=== PATIENT | female | born 1990 | race Caucasian/White ===

== ENCOUNTER 2016-09-12 16:10 | Observation (INO) | payer BC ==
[~2016-09-12] VITALS: Ht 172.7 cm; Wt 61.7 kg
[2016-09-12] VITALS (8 sets, daily range): BP systolic 95–166; BP diastolic 46–99; PULSE 64–100; RESP 16–26; TEMP 98.1; O2SAT 98–100
[~2016-09-12 16:10] MED LIST: NEOSTIGMINE 3 MG/3 ML SYR IV ONE; NORMOSOL R INJ 1,000 ML IV ONE; ONDANSETRON HCL 4 MG/2 ML VIAL IV PUSH ONE; PROPOFOL 200 MG/20 ML AMP IV ONE
[2016-09-12 16:59] LABS: BLOOD, URINE NEG (NEG); GLUCOSE,URINE NEG (NEG); KETONE, URINE 15 mg/dL (NEG); NITRITE,URINE NEG (NEG)
[2016-09-12 17:15] LABS: BACTERIA, URINE OCC /hpf; COMMENT2 (UR) CULT NOT INDICATED; RBC, URINE 0-3 /hpf (0-3); SQUAMOUS EPITHELIAL CELL URINE > 8 /hpf (0-5); URINE COLOR YELLOW (YELLW/STRAW); WBC, URINE 0-2 /hpf (0-5)
[2016-09-12 18:28] LABS: COMMENT (UR) CULT NOT INDICATED; CULTURE IF INDICATED CULT NOT INDICATED
[2016-09-12] MEDS ORDERED: SODIUM CHLOR 0.9% 1000 ML INJ 1,000 ML IV ONE (18:45)
[2016-09-12] MEDS ORDERED: SODIUM CHLORIDE 0.9% FLUSH 5 ML FLUSH IVF PRN (18:45)
[2016-09-12] MEDS ORDERED: diphenhydrAMINE HCL 50 MG/ML VIAL IV PUSH ONE (18:45)
[2016-09-12] MEDS ORDERED: ACETAMINOPHEN 500 MG CPLT PO ONE (18:45)
[2016-09-12 19:01] LABS: CHLORIDE 102 MEQ/L (98-107); SODIUM (NA) 137 MEQ/L (136-145)
[2016-09-12 19:05] LABS: ANION GAP 8 MEQ/L (5-15); BICARBONATE 26.6 MEQ/L (21.0-32.0); BLOOD UREA NITROGEN 18 MG/DL (7-18)
[2016-09-12 19:08] LABS: ALT (GPT) 16 U/L (10-53); AST (GOT) 11 U/L (15-37); GLOMERULAR FILTRATION RATE 78 ML/MIN (>89)
[2016-09-12 19:09] LABS: TOTAL BILIRUBIN ADULT 0.6 MG/DL (0.2-1.0)
[2016-09-12 19:11] LABS: ALKALINE PHOSPHATASE 64 U/L (45-117)
[2016-09-12 19:13] LABS: BETA HCG QUANT 595 MIU/ML (0-5)
--- NOTE | 2016-09-12 20:49 | RADHPO ---
EXAM DATE/TIME: 09/12/2016 19:46 [place] COMPARISON: No previous studies available for comparison. INDICATIONS : Ectopic. LAB(S): Beta-hC MEDICAL HISTORY : . Irritable bowel syndrome. Asthma. Anxiety. SURGICAL HISTORY : None. ENCOUNTER: Initial ACUITY: 1 day PAIN SCORE: 8/10 LOCATION: Bilateral pelvis MEASUREMENTS: UTERUS: 6.5 x 5.3 x 3.8 cm ENDOMETRIAL STRIPE: 9 mm RIGHT OVARY: 5.1 x 4.6 x 4.6 cm LEFT OVARY: 3.8 x 3.5 x 2.3 cm FINDINGS: UTERUS: The myometrium has homogeneous echotexture without mass. A gestational sac is not seen in the endome trial cavity. There are small cysts at the cervix likely related to in nabothian cysts. RIGHT OVARY: There is a complex cystic mass within internal cystic area measuring 1.1 x 1.0 x 0.9 cm. This could p otentially be a gestational sac with a sac. LEFT OVARY: Several simple cysts measuring up to 2.1 cm are seen. MISCELLANEOUS: There is a large amount of complex free fluid present. CONCLUSION: Large amount of complex free fluid with a gestational sac is not seen in the endometrial cavity mayelin rning for a ruptured ectopic given the history. There is a possible gestational sac in the right adne xa. Suleiman Calvillo MD on September 12, 2016 at 20:40 Board Certified Radiologist. This report was verified electronically.
--- NOTE | 2016-09-12 20:59 | PD ---
HPI Chief Complaint: Abdominal Pain Time Seen by Provider: 18:28 Travel History International Travel<30 days: No Contact w/Intl Traveler<30days: No Traveled to known affect area: No History of Present Illness HPI Patient is a 26-year-old female presents emergency Department with sudden onset lower quadrant abdominal pain one hour prior to presentation. Patient states that sharp really painful. Patient states that she had a period approximately 1 week ago which is much heavier than her previous period which was 4 weeks prior to that. Patient states unsure if she could be at this time. She has had 1 prior ending in spontaneous miscarriage. She states her blood type is O+. No other surgeries in her abdomen. Mild nausea without vomiting or diarrhea. PFSH Past Medical History Asthma: Yes Anxiety: Yes Diminished Hearing: No Gastrointestinal Disorders: Yes (ibs) Immunizations Current: Yes Tetanus Vaccination: < 5 Years Influenza Vaccination: Yes ?: LMP: 1 week : 1 Miscarriage: 1 Past Surgical History Surgical History: No Previous Surgery Social History Alcohol Use: Yes (occ) Tobacco Use: Yes (2-3 cigs) Substance Use: No Allergies-Medications (Allergen,Severity, Reaction): Coded Allergies: Claritin (Verified Adverse Reaction, Unknown, vomiting, 09/12/16) Reported Meds & Prescriptions Reported Meds & Active Scripts Active No Active Prescriptions or Reported Medications Review of Systems Except as stated in HPI: all other systems reviewed are Neg Physical Exam Narrative GENERAL: Well-developed well-nourished no apparent distress. SKIN: Warm and dry. HEAD: Atraumatic. Normocephalic. EYES: Pupils equal and round. No scleral icterus. No injection or drainage. ENT: No nasal bleeding or discharge. Mucous membranes pink and moist. NECK: Trachea midline. No JVD. CARDIOVASCULAR: Regular rate and rhythm. No murmur appreciated. RESPIRATORY: No accessory muscle use. Clear to auscultation. Breath sounds equal bilaterally. GASTROINTESTINAL: Abdomen soft, moderately tender in bilateral lower quadrants R >L, nondistended. Hepatic and splenic margins not palpable. MUSCULOSKELETAL: No obvious deformities. No clubbing. No cyanosis. No edema. NEUROLOGICAL: Awake and alert. No obvious cranial nerve deficits. Motor grossly within normal limits. Normal speech. PSYCHIATRIC: Appropriate mood and affect; insight and judgment normal. Data Data Last Documented VS Vital Signs Date Time Temp Pulse Resp B/P Pulse Ox O2 Delivery O2 Flow Rate FiO2 09/12/16 21:12 67 18 98/60 100 Room Air 09/12/16 16:10 98.1 Orders Urinalysis - C+S If Indicated (09/12/16 16:14) Ed Urine Pregnancytest Poc (09/12/16 16:14) Basic Metabolic Panel (Bmp) (09/12/16 18:32) Beta Hcg (Quant/Titer) (09/12/16 18:32) Comprehensive Metabolic Panel (09/12/16 18:32) Urinalysis - C+S If Indicated (09/12/16 18:32) Iv Access Insert/Monitor (09/12/16 18:32) Ecg Monitoring (09/12/16 18:32) Oximetry (09/12/16 18:32) Sodium Chloride 0.9% Flush (Ns Flush) (09/12/16 18:45) Ed Poc Ultrasound (09/12/16 18:32) Us Pelvis (Ques Pr/Ect)W Trans (09/12/16 18:39) Acetaminophen (Tylenol) (09/12/16 18:45) Diphenhydramine Inj (Benadryl Inj) (09/12/16 18:45) Sodium Chlor 0.9% 1000 Ml Inj (Ns 1000 M (09/12/16 18:45) Type And Screen (09/12/16 18:57) Complete Blood Count With Diff (09/12/16 20:52) Red Blood Cells (Rbc) (09/12/16 20:53) Blood Product Administration .UPON TRANSFUSION (09/12/16 20:53) Sodium Chlor 0.9% 250 Ml Inj (Ns 250 Ml (09/12/16 21:00) Admit Order (Ed Use Only) (09/12/16 ) Labs Laboratory Tests Test 09/12/16 09/12/16 09/12/16 09/12/16 16:30 18:30 19:00 21:09 Urine Color YELLOW Urine Turbidity CL Urine pH 6.0 Urine Specific [place] 1.029 Urine Protein NEG mg/dL Urine Glucose (UA) NEG mg/dL Urine Ketones 15 mg/dL Urine Occult Blood NEG Urine Nitrite NEG Urine Bilirubin NEG Urine Leukocyte Esterase NEG Urine RBC 0-3 /hpf Urine WBC 0-2 /hpf Urine Squamous Epithelial > 8 /hpf Cells Urine Bacteria OCC /hpf Microscopic Urinalysis Comment CULT NOT INDICATED White Blood Count 11.1 TH/MM3 Red Blood Count 5.23 MIL/MM3 Hemoglobin 15.2 GM/DL Hematocrit 46.8 % Mean Corpuscular Volume 89.3 FL Mean Corpuscular Hemoglobin 29.0 PG Mean Corpuscular Hemoglobin 32.5 % Concent Red Cell Distribution Width 11.7 % Platelet Count 234 TH/MM3 Mean Platelet Volume 8.6 FL Neutrophils (%) (Auto) 73.8 % Lymphocytes (%) (Auto) 20.7 % Monocytes (%) (Auto) 5.1 % Eosinophils (%) (Auto) 0.3 % Basophils (%) (Auto) 0.1 % Neutrophils # (Auto) 8.2 TH/MM3 Lymphocytes # (Auto) 2.3 TH/MM3 Monocytes # (Auto) 0.6 TH/MM3 Eosinophils # (Auto) 0.0 TH/MM3 Basophils # (Auto) 0.0 TH/MM3 CBC Comment DIFF FINAL Differential Comment Sodium Level 137 MEQ/L Potassium Level 4.0 MEQ/L Chloride Level 102 MEQ/L Carbon Dioxide Level 26.6 MEQ/L Anion Gap 8 MEQ/L Blood Urea Nitrogen 18 MG/DL Creatinine 0.88 MG/DL Estimat Glomerular Filtration 78 ML/MIN Rate Random Glucose 87 MG/DL Calcium Level 9.3 MG/DL Total Bilirubin 0.6 MG/DL Aspartate Amino Transf 11 U/L (AST/SGOT) Alanine Aminotransferase 16 U/L (ALT/SGPT) Alkaline Phosphatase 64 U/L Total Protein 7.8 GM/DL Albumin 4.3 GM/DL Human Chorionic Gonadotropin, 595 MIU/ML Quant Blood Type O POSITIVE O POSITIVE Antibody Screen NEGATIVE Blood Bank Comment Crossmatch Leukocyte-Reduced Red Blood Cells [facility] Medical Decision Making Medical Screen Exam Complete: Yes Emergency Medical Condition: Yes Differential Diagnosis Ectopic , ruptured ectopic , tubal pain, appendicitis is less likely, Rh mismatch. Narrative Course Patient is roomed in the emergency department, she appears uncomfortable but nontoxic, vital signs are stable. Patient bedside ultrasound is concerning for ectopic possibly with intrapelvic bleeding. Official ultrasound was ordered, Quant hCG is about 550. Official ultrasound is highly suspect for ruptured ectopic with a yolk sac seen in the right adnexa and a moderate amount of free pelvic fluid this was discussed with Dr. Cash. Patient was then discussed with Dr. nugent who is the ORDERING MACHINE OPERATOR greenstone polisher operator jose who suggested discussing with Dr. Sellers for further management. Patient was discussed Dr. Sellers recommends ER to ER transfer and then from there will go to the OR for exploration. Patient has type and cross for 2 units at this time. Her vital signs remained stable prior to transfer. Blood type is O+ no indication for RhoGAM. Critical Care Narrative Aggregate critical care time was 35] minutes. Time to perform other separately billable procedures was not included in the critical care time. My time did not include minutes spent treating any other patients simultaneously or on activities that did not directly contribute to the patient's treatment. The services I provided to this patient were to treat and/or prevent clinically significant deterioration that could result in: , disability and organ failure. I provided critical care services requiring my management, as noted below: Chart data review, documentation time, medication orders and management, vital sign assessments/reviewing monitor data, ordering and reviewing lab tests, ordering and interpreting/reviewing x-rays and diagnostic studies, care of the patient and discussion of the patient with the admitting physicians. Procedures Procedure Narrative Bedside ultrasound performed which shows moderate amount of free pelvic fluid, no definitive intrauterine is seen. Diagnosis Primary Impression: Ruptured left tubal ectopic causing hemoperitoneum Admitting Information Admitting Physician Requests: Admit Scripts No Active Prescriptions or Reported Meds Condition: Stable Jovani Craft MD Sep 12, 2016 20:58
[2016-09-12 21:00] LABS: AUTOMATED NEUTROPHIL # 8.2 TH/MM3 (1.8-7.7); BASOPHIL % 0.1 % (0.0-2.0); EOSINOPHIL % 0.3 % (0.0-4.0); HEMATOCRIT 46.8 % (35.0-46.0); HEMO FLAGS DIFF FINAL; LYMPH % 20.7 % (9.0-44.0); LYMPHOCYTE # 2.3 TH/MM3 (1.0-4.8); MEAN CELL VOLUME 89.3 FL (80.0-100.0); MEAN CORPUSCULAR HGB CONC 32.5 % (32.0-36.0); MONO % 5.1 % (0.0-8.0); NEUT % 73.8 % (16.0-70.0); PLATELET COUNT 234 TH/MM3 (150-450); RED BLOOD COUNT 5.23 MIL/MM3 (4.00-5.30); RED CELL DISTRIBUTION WIDTH 11.7 % (11.6-17.2); WHITE BLOOD COUNT 11.1 TH/MM3 (4.0-11.0)
[2016-09-12] MEDS ORDERED: SODIUM CHLOR 0.9% 250 ML INJ 250 ML IV ONE (21:00)
[2016-09-12] MEDS ORDERED: MORPHINE SULFATE 8 MG/ML INJ ONE (22:27)
[2016-09-12] MEDS ORDERED: MORPHINE SULFATE 8 MG/ML INJ IV PUSH ONE (22:30)
--- NOTE | 2016-09-12 22:30 | PD ---
Physical Exam Narrative Patient was initially seen in [place] diagnosed with a ruptured ectopic . The patient was seen by Dr. Jovani Roberts who ordered the appropriate blood work including type and cross. The patient has a belly full of blood. Her beta-hCG was lower than would be expected and with severe pain, prompted the ectopic workup. Dr. Golden Sellers, on-call SEISMOGRAPH SUPERVISOR was aware and was here to meet her when she arrived. Data Data Last Documented VS Vital Signs Date Time Temp Pulse Resp B/P Pulse Ox O2 Delivery O2 Flow Rate FiO2 09/12/16 21:12 67 18 98/60 100 Room Air 09/12/16 16:10 98.1 Orders Urinalysis - C+S If Indicated (09/12/16 16:14) Ed Urine Pregnancytest Poc (09/12/16 16:14) Basic Metabolic Panel (Bmp) (09/12/16 18:32) Beta Hcg (Quant/Titer) (09/12/16 18:32) Comprehensive Metabolic Panel (09/12/16 18:32) Urinalysis - C+S If Indicated (09/12/16 18:32) Iv Access Insert/Monitor (09/12/16 18:32) Ecg Monitoring (09/12/16 18:32) Oximetry (09/12/16 18:32) Sodium Chloride 0.9% Flush (Ns Flush) (09/12/16 18:45) Ed Poc Ultrasound (09/12/16 18:32) Us Pelvis (Ques Pr/Ect)W Trans (09/12/16 18:39) Acetaminophen (Tylenol) (09/12/16 18:45) Diphenhydramine Inj (Benadryl Inj) (09/12/16 18:45) Sodium Chlor 0.9% 1000 Ml Inj (Ns 1000 M (09/12/16 18:45) Type And Screen (09/12/16 18:57) Complete Blood Count With Diff (09/12/16 20:52) Red Blood Cells (Rbc) (09/12/16 20:53) Blood Product Administration .UPON TRANSFUSION (09/12/16 20:53) Sodium Chlor 0.9% 250 Ml Inj (Ns 250 Ml (09/12/16 21:00) Admit Order (Ed Use Only) (09/12/16 ) Labs Laboratory Tests Test 09/12/16 09/12/16 09/12/16 09/12/16 16:30 18:30 19:00 21:09 Urine Color YELLOW Urine Turbidity CL Urine pH 6.0 Urine Specific [place] 1.029 Urine Protein NEG mg/dL Urine Glucose (UA) NEG mg/dL Urine Ketones 15 mg/dL Urine Occult Blood NEG Urine Nitrite NEG Urine Bilirubin NEG Urine Leukocyte Esterase NEG Urine RBC 0-3 /hpf Urine WBC 0-2 /hpf Urine Squamous Epithelial > 8 /hpf Cells Urine Bacteria OCC /hpf Microscopic Urinalysis Comment CULT NOT INDICATED White Blood Count 11.1 TH/MM3 Red Blood Count 5.23 MIL/MM3 Hemoglobin 15.2 GM/DL Hematocrit 46.8 % Mean Corpuscular Volume 89.3 FL Mean Corpuscular Hemoglobin 29.0 PG Mean Corpuscular Hemoglobin 32.5 % Concent Red Cell Distribution Width 11.7 % Platelet Count 234 TH/MM3 Mean Platelet Volume 8.6 FL Neutrophils (%) (Auto) 73.8 % Lymphocytes (%) (Auto) 20.7 % Monocytes (%) (Auto) 5.1 % Eosinophils (%) (Auto) 0.3 % Basophils (%) (Auto) 0.1 % Neutrophils # (Auto) 8.2 TH/MM3 Lymphocytes # (Auto) 2.3 TH/MM3 Monocytes # (Auto) 0.6 TH/MM3 Eosinophils # (Auto) 0.0 TH/MM3 Basophils # (Auto) 0.0 TH/MM3 CBC Comment DIFF FINAL Differential Comment Sodium Level 137 MEQ/L Potassium Level 4.0 MEQ/L Chloride Level 102 MEQ/L Carbon Dioxide Level 26.6 MEQ/L Anion Gap 8 MEQ/L Blood Urea Nitrogen 18 MG/DL Creatinine 0.88 MG/DL Estimat Glomerular Filtration 78 ML/MIN Rate Random Glucose 87 MG/DL Calcium Level 9.3 MG/DL Total Bilirubin 0.6 MG/DL Aspartate Amino Transf 11 U/L (AST/SGOT) Alanine Aminotransferase 16 U/L (ALT/SGPT) Alkaline Phosphatase 64 U/L Total Protein 7.8 GM/DL Albumin 4.3 GM/DL Human Chorionic Gonadotropin, 595 MIU/ML Quant Blood Type O POSITIVE O POSITIVE Antibody Screen NEGATIVE Blood Bank Comment Crossmatch Leukocyte-Reduced Red Blood Cells [facility] Medical Record Reviewed: Yes Supervised Visit with CHECO: No Differential Diagnosis Ectopic versus intrauterine versus ruptured ovarian cyst Narrative Course Patient transferred from [place] emergency department to the main ED for a ruptured ectopic . The patient will be taken to the operating room by Dr. Golden Sellers. Dr. Sellers is here at the bedside and is consenting the patient for surgery. Diagnosis Primary Impression: Ruptured left tubal ectopic causing hemoperitoneum Scripts No Active Prescriptions or Reported Meds Mickey Messer MD Sep 12, 2016 22:29
[2016-09-12] MEDS ORDERED: DICLOFENAC SODIUM 37.5 MG/ML VIAL IV PUSH ONE (23:10)
[2016-09-12] MEDS ORDERED: ACETAMINOPHEN 1000 MG/100 ML VIAL IV ONE (23:10)
[2016-09-12] MEDS ORDERED: fentaNYL CITRATE 250 MCG/5 ML AMP ONE (23:10)
[2016-09-12] MEDS ORDERED: ceFAZolin INJ 1,000 MG VIAL IV ONE (23:25)
[2016-09-12] MEDS ORDERED: LIDOCAINE 1%/EPINEPHrine 1:100,000 SOLN 30 ML VIAL INFIL ONE (23:33)
[2016-09-13] MEDS ORDERED: HYDROmorphone HCL PF 1 MG/ML VIAL IVP PRN (00:15)
[2016-09-13] MEDS ORDERED: PROMETHAZINE INJ 25 MG/ML VIAL IM PRN (00:15)
[2016-09-13] MEDS ORDERED: SODIUM CHLORIDE 0.9% FLUSH 5 ML FLUSH FLUSH PRN (00:15)
[2016-09-13] MEDS ORDERED: ONDANSETRON HCL 4 MG/2 ML VIAL IVP PRN (00:15)
[2016-09-13] MEDS ORDERED: oxyCODONE/ACETAMINOPHEN 5 MG/325 MG TAB PO PRN (00:15)
[2016-09-13] MEDS ORDERED: diphenhydrAMINE HCL 25 MG CAP PO PRN (00:15)
--- NOTE | 2016-09-13 00:18 | PD.OP ---
Operative Report Date of Surgery: Sep 12, 2016 Preoperative Diagnosis: (1) Ectopic Postoperative Diagnosis: (1) Corpus luteum cyst hemorrhage Procedure: Control of hemorrhagic ovarian cyst right sided Anesthesia: GETA/OGT Surgeon: Golden Sellers Automat Watcher(s): [facility] x 1 Operation and Findings: 500 cc of liquid and clotted blood in pelvis normal tubes active bleeding from right CL cyst normal appendix and upper abdomen Golden Sellers MD Sep 13, 2016 00:18
--- NOTE | 2016-09-13 00:22 | MH ---
cc: KAYLA COSTA MD DATE OF ADMISSION: 09/12/2016 CHIEF COMPLAINT: Ruptured ectopic HISTORY OF PRESENT ILLNESS: The patient is a 26-year-old white female 2, para 0 who had last period approximately 4 weeks ago. She had the sudden onset of right-sided lower abdominal pain approximately one hours prior to admission. She had an hCG that was approximately 590 but had significant pain which led to an ultrasound which showed significant fluid in the pelvis and a complex mass which is suggestive of a yolk sac on the right side. The endometrial cavity appears to be empty. In light of the most likely hemoperitoneum, the patient is not an appropriate candidate for conservative therapy and is admitted for surgery. PAST MEDICAL HISTORY: Asthma. Anxiety disorder. IVF. PAST SURGICAL HISTORY: None. SOCIAL HISTORY: Engaged. No significant substance abuse. Occasional cigarettes. Visiting from [place] ALLERGIES: CLARITIN No heart, liver disease, hypertension, diabetes, stroke, has mild to moderate asthma, is not exacerbated by aspirin. The patient has no history of liver or hematologic disorders. FAMILY HISTORY Noncontributory GYNECOLOGIC HISTORY No STDs or abnormal Pap smears. She has not seen her [place] strapping machine tender for at least a year, but she denies any history of sexually transmitted disease. REVIEW OF SYSTEMS: Review of systems as above, abdominal pain, vaginal bleeding. No nausea, vomiting, fever, chills, in a supine position she has more right shoulder pain. PHYSICAL EXAMINATION: On exam she is afebrile. Blood pressure is 140/70, heart rate is 90, BMI is 22. The patient is anxious, tearful, in obvious discomfort. Her fiance is at the bedside. The patient is aware of person, place and time. HEENT: Within normal limits. Neck: Supple. No JVD. Chest: Clear. Heart: Regular rate and rhythm. Abdomen: Soft but tender in the right and left lower quadrant. No significant rebound. Further exam under anesthesia. Pelvic: Deferred. Extremities: Normal skin without rashes, nonfocal. No DVT signs. LABORATORY FINDINGS Hematocrit 46.8, platelet count is 234. White count 11.1, hCG is 595, potassium is 4. Liver function tests normal. Urinalysis unremarkable. IMAGING STUDIES At 19:46 on 09/12 shows endometrial stripe of 9 mm. Uterus is 6.5 x 5.3 x 3.8 cm. Right ovary is 5 x 4.6 x 4.6 cm. Left ovary is 3.8 x 3.5 x 2.3 cm. Complex mass in the right adnexa with cystic area suggestive of a yolk sac approximately 1 x 2 cm. Large amount of free fluid noted. ASSESSMENT Patient with most likely ruptured ectopic , although the hCG is somewhat low. It is possible that this process has been going on for some period of time and hCG has been trending downward, does not appear to have any gestational sac or enlargement of endometrial cavity. At this point she is not a candidate for conservative therapy. It is possible that this could be an early intrauterine with ruptured corpus luteal cyst but we really cannot tell that without performing laparoscopy. She is very desirous of this and I will hold on uterine manipulation until ectopic is confirmed. The patient was quite anxious and somewhat distraught. She does appear to be able to consent to the surgery. I did talk with her fiance and the patient's mother by phone, explained the issues regarding the need for surgery and the likelihood that if there is an ectopic on the right side the right tube may well be damaged beyond repair and may need to be removed. We would do everything we can to keep the ovaries intact if at all possible. At this point, I believe the patient has a clear understanding of what we are planning but I did have her fiance sign the consent as the patient was in some distress, as they were starting IVs and I thought it was more appropriate to have the fiance sign the consent. At this point we anticipate laparoscopy with umbilical entry, suprapubic port and a right and possible left lower quadrant port. Considering the time of evening, it is unlikely the patient will be discharged from the Recovery Room, and most likely will need at least 23-hour observation. MD MARBIN Welsh/AMELIA /10:45 PM /12:09 AM CINDY
[2016-09-13] MEDS ORDERED: *morphine SULFATE 8 MG/ML PERIprocedure ONLY ONE (00:27)
[2016-09-13] MEDS ORDERED: *MEPERIDINE 25 MG INJ VIAL PERIprocedural Use ONLY ONE (00:27)
[2016-09-13] MEDS: ACETAMINOPHEN/HYDROcodone 325 MG/5 MG TAB PO PRN ×3 (03:43→12:54)
[2016-09-13 03:44] VITALS: BP 105/59; PULSE 105; RESP 14; TEMP 98
[2016-09-13] MEDS ORDERED: DO NOT ADM ANY ANTICOAGULANT DRUGS XX PRN (04:00)
[2016-09-13 06:34] VITALS: BP 96/58; PULSE 95; RESP 16; O2SAT 99
[2016-09-13] MEDS ORDERED: SODIUM CHLORIDE 0.9% FLUSH 5 ML FLUSH FLUSH SCH (09:00)
[2016-09-13 09:48] LABS: AUTOMATED NEUTROPHIL # 6.3 TH/MM3 (1.8-7.7); BASOPHIL % 0.1 % (0.0-2.0); HEMATOCRIT 36.3 % (35.0-46.0); HEMO FLAGS DIFF FINAL; LYMPH % 10.9 % (9.0-44.0); LYMPHOCYTE # 0.8 TH/MM3 (1.0-4.8); MEAN CELL VOLUME 89.4 FL (80.0-100.0); MEAN CORPUSCULAR HEMOGLOBIN 30.3 PG (27.0-34.0); MEAN CORPUSCULAR HGB CONC 33.9 % (32.0-36.0); MONO % 2.4 % (0.0-8.0); NEUT % 86.6 % (16.0-70.0); PLATELET COUNT 181 TH/MM3 (150-450); RED BLOOD COUNT 4.06 MIL/MM3 (4.00-5.30); RED CELL DISTRIBUTION WIDTH 11.7 % (11.6-17.2); WHITE BLOOD COUNT 7.2 TH/MM3 (4.0-11.0)
[2016-09-13 10:07] LABS: BETA HCG QUANT 363 MIU/ML (0-5)
[2016-09-13 12:41] VITALS: BP 98/49; RESP 16
[2016-09-13] MEDS ORDERED: ACETAMINOPHEN 1000 MG/100 ML VIAL IV ONE (14:15)
[2016-09-13] MEDS ORDERED: AMPICILLIN-SULBACTAM INJ 3 GM in SODIUM CHLORIDE 0.9% INJ 100 ML IV SCH (15:00)
[2016-09-13 16:28] VITALS: BP 120/76; PULSE 86; RESP 20; TEMP 98.2
--- NOTE | 2016-09-13 16:29 | HHI.PR ---
Subjective Remarks FEELS GOOD TAKING PO AND UP AND WALKING WELL WANTS TO GO HOME Objective - EXAM WITH BENIGN ABDOMEN NO ORTHOSTASIS HCT 36 HCG DOWN TO 350'S Vital Signs Date Time Temp Pulse Resp B/P Pulse Ox O2 Delivery O2 Flow Rate FiO2 09/13/16 12:41 16 98/49 09/13/16 06:34 95 99 09/13/16 03:44 98.0 09/13/16 02:30 Room Air 09/13/16 01:00 2 Result Diagram: 09/13/16 0858 09/12/16 1830 A/P Problem List: (1) Corpus luteum cyst hemorrhage ICD Code: N83.10 Assessment and Plan DISCUSSED OPTIONS AND TREATMENT OPTIONS SEEMS MOST LIKELY THAT SHE HAD SPONT AB LAST WEEK AND THEN CL CYST RUPTURE NO SX OF CONTINUED BLEEDING HAS I/P WILL F/U WITH PRIVATE MD BUT HAS MY CARD IF SHE NEEDS ME Discharge Planning HOME NO RX Golden Sellers MD Sep 13, 2016 16:29
--- NOTE | 2016-09-13 22:43 | MP ---
cc: KAYLA COSTA MD DATE OF SURGERY: 09/12/2016 PREOPERATIVE DIAGNOSES Right ectopic with hemoperitoneum. POSTOPERATIVE DIAGNOSES Hemorrhagic corpus luteal cyst right side. SURGEON Dr. Costa ANESTHESIA General endotracheal with OG tube. PROCEDURE 1. Diagnostic laparoscopy. 2. Control of hemorrhage from right ovary. FLUID 2000 cc of crystalloid. URINE OUTPUT 200 cc. BLOOD LOSS 500 cc of blood in the pelvis and abdominal cavity upon entry. Approximately 20 cc of blood loss during the case from the right ovary. OPERATIVE FINDINGS External genitalia normal. POP-Q score: Aa is -3. Ap is -3. Point C is -8. Total vaginal length is 10. Genital hiatus is 4. Perineal body is 4. Uterus is mobile, slightly retroverted, upper limits normal size. The internal anatomy shows extensive hemorrhage in the abdominal and pelvic cavity. Tubes are mobile with no distortion of the tube. No distortion of the fimbria or the cornu. Left ovary is normal and mobile. The right ovary has active bleeding from corpus luteal cyst. This does not appear to be an ovarian ectopic. Upper abdomen normal. Appendix normal. SPECIMENS None. COMPLICATIONS None. DISPOSITION Recovery Room stable. COUNTS Instrument and sponge count correct. DRAINS Zambrano catheter. PROPHYLAXIS Antibiotic prophylaxis Ancef 1 gram. DVT prophylaxis sequential compression device. The time-out procedure per protocol. SUMMARY OF INDICATION FOR PROCEDURE The patient presented to the emergency room with a relatively sudden onset of right-sided pelvic pain. Beta HCG was 595. Ultrasound showed a significant amount of free fluid in the pelvis and a complex mass on the right which was suspicious for a gestational sac. The endometrial cavity was empty and the stripe was approximately 11 mm. Suspicion of ectopic was entertained although there was the less likely possibility of a hemorrhagic corpus luteum. The patient had been prepared for treatment of ectopic . PROCEDURE The patient taken to the operating theater, identified, prepped and draped in a fashion appropriate for planned procedure. She was in dorsolithotomy position with careful attention paid to placement of legs in the stirrups to avoid undue stress to sensitive neurovascular structures. Above findings noted. Neurovascular integrity documented. Zambrano catheter was placed. The umbilicus was infiltrated with epinephrine and lidocaine solution. A 5-mm incision was made. A 5-mm scope was placed under direct visualization. As noted above, a significant amount of blood in the pelvis, this was liquefied as well as clotted. A left lower quadrant incision was made using a needle as a guide, a 5-mm trocar was placed under direct visualization. The pelvis was suctioned of blood, and at this point we were able to identify the tubes and ovaries and we noted that the tubes appeared to be rather pristine and the site of bleeding appeared to be actively coming from the right ovary in an area consistent corpus luteal cyst. This did not have the characteristics nor meet the criteria for ovarian ectopic. Remainder of the blood was suctioned from the pelvis, this was approximately 500 cc. Actual blood loss during the case from the corpus luteal cyst was approximately 20 cc. In light of the possibility of early intrauterine , we did not want to remove the ovary and deprive the milieu of progesterone so we did our best to render the area hemostatic with bipolar cautery and this was accomplished with minimal charring. We reduced gas pressure to 6 mmHg and there was no oozing or bleeding from the ovary. We observed this for approximately 10 minutes and felt confident that the bleeding had been rendered hemostatic. We did place hemostatic powder over the ovary and in the cul-de-sac for added reassurance. It should also be noted that we did introduce a 5-mm trocar suprapubically during the case to assist us with retraction and suction. At this point, the procedure was concluded. Incisions were closed with 4-0 Monocryl and Dermabond. At this point, we will obtain obstetric consultation for further followup. We recommend she stay in house for at least 12-18 hours to make sure that she is has a stable hematocrit and no further signs of bleeding and then defer her to obstetric consultants regarding followup in terms of followup of her HCG increases and other issues germane to early that are outside the scope of practice. MD MARBIN Wlesh/NICHELLE /12:22 AM /9:48 PM
--- NOTE | 2016-09-16 08:49 | MD ---
cc: KAYLA COSTA MD ADMISSION DATE: 09/12/2016 DISCHARGE DATE: 09/13/2016 DISCHARGE DIAGNOSES 1. Hemorrhagic right corpus luteal cyst. 2. Probable spontaneous 1 week prior to admission. PROCEDURE Laparoscopic control of ovarian hemorrhage. CONDITION ON DISCHARGE Good. DIET Regular as tolerated. ACTIVITY Pelvic rest for 2 weeks. MEDICATIONS Toradol 10 mg one p.o. q. 6 hours p.r.n., dispense 15 with no refills. FOLLOWUP Follow up with private [facility] in 48-72 hours. SUMMARY OF ADMISSION The patient was admitted to the emergency room with signs and symptoms suggestive of ectopic . She had an HCG of 595 but ultrasound showed considerable free fluid consistent with hemoperitoneum. She underwent laparoscopic evaluation and was found to have normal pelvis in terms of tubes but had a hemorrhagic right corpus luteal cyst in the right ovary. The ovary was rendered hemostatic. Blood was suctioned from the peritoneum. The patient was observed for approximately 18 hours postop. The patient's HCG dropped to 36.3. On the afternoon of discharge she was afebrile. Vital signs were stable. No orthostasis, blood pressure is 120/70, heart rate was 80. The patient was taking regular diet and was anxious for discharge. Her physical exam was unremarkable. Her abdominal exam was benign. The incisions were healing well. No sign of DVT or other embolic complications. The patient has detailed precautions and instructions. Discharged home with above instructions and plan. MD MARBIN Welsh/TLL /8:36 PM /8:33 AM CINDY
== END 2016-09-13 18:00 | disposition home or self-care (01) ==
LOC: PHED 16:10 → PHEDA 21:33 → INTOOBSV 21:33 → HPAC 22:57 → H2EA 09-13 03:28
PROVIDERS: ADMIT Obstetrics & Gynecology Gynecology; ATTEND Obstetrics & Gynecology Gynecology
DX: N83.11 Corpus luteum cyst of right ovary (principal); K66.1 Hemoperitoneum; K58.9 Irritable bowel syndrome, unspecified; J45.909 Unspecified asthma, uncomplicated; F17.210 Nicotine dependence, cigarettes, uncomplicated
CPT/HCPCS: 00840; 49322; 76700; 76817; 80053; 81001; 84702; 84703; 85025; 86850; 86900; 86901; 86920; 96361; 96374; 99291; G0378; J0131; J0690; J1200; J2175; J2270; J2405; J2710; J3010; J7030; J1130